=== PATIENT | female | born 1985 ===

== ENCOUNTER 2017-07-16 09:05 | Emergency (ER) | payer OTHER ==
[2017-07-16 10:13] VITALS: BP 106/85
--- NOTE | 2017-07-16 10:36 | ED ---
Throat Pain/Nasal Congestion - HPI Summary HPI Summary: 32 yr old female with the complaint of URI symptoms, cough, runny nose, sinus congestion, bilateral ear pressure. Denies SOB. Denies dizziness. She has had some myalgias. She has been ill for three days. - History of Current Complaint Chief Complaint: UCRespiratory Time Seen by Provider: 07/16/17 10:04 - Allergies/Home Medications Allergies/Adverse Reactions: Allergies Allergy/AdvReac Type Severity Reaction Status Date / Time No Known Allergies Allergy Verified 07/16/17 10:03 Home Medications: Home Medications D-Methorphan/PE/Acetaminophen [Cold Multi-Symptom [place]] 07/16/17 [History] Minocycline (NF) 50 mg 07/16/17 [History] PMH/Surg Hx/FS Hx/Imm Hx - Surgical History Surgery Procedure, Year, and Place: D&C [place] 2003. TUBAL LIGATION 2014 Infectious Disease History: No Infectious Disease History: Denies: Traveled Outside the [place] in Last 30 Days - Family History Known Family History: Positive: None - Social History Alcohol Use: None Substance Use Type: Reports: None Smoking Status (MU): Never Smoked Tobacco Review of Systems Positive: Chills Positive: Ear Ache, Nasal Discharge Positive: Cough Positive: Myalgia All Other Systems Reviewed And Are Negative: Yes Physical Exam Triage Information Reviewed: Yes Vital Signs On Initial Exam: Initial Vitals Temp Pulse Resp BP Pulse Ox 99.6 F 77 16 106/85 100 07/16/17 10:02 07/16/17 10:02 07/16/17 10:02 07/16/17 10:02 07/16/17 10:02 Vital Signs Reviewed: Yes Appearance: Positive: Well-Appearing, No Pain Distress Skin: Positive: Warm, Skin Color Reflects Adequate Perfusion Head/Face: Positive: Normal Head/Face Inspection Eyes: Positive: EOMI ENT: Positive: Normal ENT inspection, Pharynx normal, Nasal congestion, TMs normal, Sinus tenderness Neck: Positive: Nontender Respiratory/Lung Sounds: Positive: Clear to Auscultation, Breath Sounds Present Cardiovascular: Positive: RRR. Negative: Murmur Abdomen Description: Positive: Nontender Musculoskeletal: Positive: Strength/ROM Intact Neurological: Positive: Sensory/Motor Intact, Alert, Oriented to Person Place, Time, CN Intact II-III Psychiatric: Positive: Normal - Joel Coma Scale Best Eye Response: 4 - Spontaneous Best Motor Response: 6 - Obeys Commands Best Verbal Response: 5 - Oriented Coma Scale Total: 15 Diagnostics - Vital Signs Vital Signs Temp Pulse Resp BP Pulse Ox 07/16/17 10:02 99.6 F 77 16 106/85 100 - Laboratory Lab Statement: Any lab studies that have been ordered have been reviewed, and results considered in the medical decision making process. EENT Course/Dx - Course Course Of Treatment: 32 yr old with sinus pressure, Sinusitis. Rx augmentin - Diagnoses Provider Diagnoses: Sinusitis Discharge - Discharge Plan Condition: Good Disposition: HOME Prescriptions: Amoxicillin/Clavulanate TAB* [Augmentin TAB 875*] 875 mg PO BID #20 tab Patient Education Materials: Sinusitis (ED) Referrals: Cande Juarez [Primary Care Provider] -
== END 2017-07-16 11:19 | disposition home or self-care (01) ==
LOC: UCCORT 09:05
DX: J32.9 Chronic sinusitis, unspecified (principal)
CPT/HCPCS: 87502; 99202; G0463

== ENCOUNTER 2017-11-07 09:11 | Emergency (ER) | payer OTHER ==
--- NOTE | 2017-11-07 10:13 | UC ---
Abdominal Pain Female HPI - HPI Summary HPI Summary: Right lower abd pain for about 24 hours. She had fever and URI on Sunday. This is getting better. Last night she started having pain, cramping and low grade fevers of 99.9. She denies pain with intercourse or vaginal involvement. SHe denies urinary symptoms or hematuria. No flank pain. There is nausea this morning. No vomiting. THere have been loose stools as well. Prior d&C for misscarriage. - History of Current Complaint Chief Complaint: UCAbdominalPain Stated Complaint: LOWER ABDOMINAL PAIN Time Seen by Provider: 11/07/17 09:23 Hx Obtained From: Patient Hx Last Menstrual Period: 10/12/17 Onset/Duration: Gradual Onset, Lasting Hours Timing: Constant Severity Initially: Moderate Severity Currently: Moderate Pain Intensity: 4 Location: Discrete At: RLQ Character: Aching, Cramping Aggravating Factor(s): Other: - palpation. Alleviating Factor(s): Nothing Associated Signs and Symptoms: Positive: Fever, Nausea. Negative: Back Pain, Constipation, Blood in Stool, Urinary Symptoms, Decreased Appetite - she says she is hungry but has very bad nausea., Vaginal Bleeding, Vomiting, Diarrhea Allergies/Adverse Reactions: Allergies Allergy/AdvReac Type Severity Reaction Status Date / Time No Known Allergies Allergy Verified 11/07/17 10:47 Home Medications: Home Medications Acetaminophen [Tylophen] 1,000 mg PO Q6H 11/07/17 [History Confirmed 11/07/17] PMH/Surg Hx/FS Hx/Imm Hx Previously Healthy: Yes - Surgical History Surgical History: Yes Surgery Procedure, Year, and Place: D&C [place] 2003. TUBAL LIGATION 2014 - Family History Known Family History: Positive: None - Social History Occupation: Employed Full-time Alcohol Use: None Substance Use Type: None Smoking Status (MU): Never Smoked Tobacco Review of Systems Gastrointestinal: Abdominal Pain, Nausea Genitourinary: Negative All Other Systems Reviewed And Are Negative: Yes Physical Exam Triage Information Reviewed: Yes Appearance: Well-Appearing - No obvious discomfort with changes in position or walking into the room., No Pain Distress, Obese Vital Signs: Initial Vital Signs Temp 99.2 F 11/07/17 09:30 Pulse 60 11/07/17 09:30 Resp 17 11/07/17 09:30 BP 116/76 11/07/17 09:30 Pulse Ox 100 11/07/17 09:30 Vital Signs Reviewed: Yes Eyes: Positive: Conjunctiva Clear ENT: Positive: Normal ENT inspection, Nasal congestion, Uvula midline. Negative : Tonsillar swelling, Tonsillar exudate, Trismus, Muffled voice Neck: Positive: Supple, Nontender, No Lymphadenopathy Respiratory: Positive: Lungs clear, Normal breath sounds, No respiratory distress, No accessory muscle use. Negative: Respiratory distress, Decreased breath sounds, Accessory muscle use, Crackles, Rhonchi, Stridor Cardiovascular: Positive: No Murmur, Pulses Normal, Brisk Capillary Refill Abdominal Exam: Other - neg kimball's. Pos rovsig. Neg psoas. Abdomen Description: Positive: No Organomegaly, Soft, McBurney's Point Tenderness. Negative: CVA Tenderness (R), CVA Tenderness (L), Distended, Peritoneal Signs, Pulsatile Mass Musculoskeletal: Positive: Strength Intact, ROM Intact, No Edema Neurological: Positive: Alert, Muscle Tone Normal. Negative: Fatigued Psychological: Positive: Age Appropriate Behavior Skin: Negative: rashes Diagnostics - Radiology No standard instances Xray Interpretation: No Acute Changes Radiology Interpretation Completed By: Radiologist Abd Pain Female Course/Dx - Course Course Of Treatment: RLQ pain. She had a pelvic by roofing subcontractor one week ago and "swabs" were normal. She has low risk relationship with monogamous partner. No symptoms. There is suspicion of appendicitis based on location and tenderness. CT has been ordered. CT returns as neg for appendicitis or acute process on the right. Again, she has had pelvic coincidentelly this past week and she denies any vaginal symptoms. She is well. On re exam she remains the same and has no guarding or peritoneal signs or rebound. We told her in no uncertain terms that CT can be neg despite a true appendicitis in a low percentage of patients. She agrees to go to ED for any worsening and will f/u with pcp within 24 hours for repeat exam. - Differential Dx/Diagnosis Differential Diagnosis: ACS, Appendicitis, Bowel Obstruction, Constipation, Diverticulitis, Ectopic , Gall Bladder Disease, Irritable Bowel Syndrome, Ovarian Cyst, Pancreatitis, Pelvic Inflammatory Disease, Peptic Ulcer Disease, Pneumonia, Urinary Tract Infection Provider Diagnoses: abd pain right lower quadrant. Discharge - Sign-Out/Discharge Documenting (check all that apply): Discharge/Admit/Transfer - Discharge Plan Condition: Good Disposition: HOME Patient Education Materials: Acute Abdominal Pain (ED) Referrals: Cande Juarez [Primary Care Provider] - 1 Day Additional Instructions: Return here or to the ED as we discussed if any new symptoms arise or if current symptoms worsen. Otherwise f/u with pcp tomorrow for a recheck. - Billing Disposition and Condition Condition: GOOD Disposition: Home
[2017-11-07] MEDS ORDERED: Iohexol 300* (CONTRAST) 10 ML SDV IV ONE (10:47)
[2017-11-07 11:54] VITALS: BP 128/81
--- NOTE | 2017-11-07 12:40 | RAD ---
INDICATION: RIGHT lower quadrant tenderness. Intermittent RIGHT lower quadrant pain for 2 months began again this morning. Associated nausea. COMPARISON: No relevant prior exams available on the [facility] PACS for comparison. TECHNIQUE: Multidetector CT images were obtained from the lung bases to the ischial tuberosities with 99 mL Omnipaque 300 IV and oral contrast. Multiplanar reformation. REPORT: Unremarkable visualized inferior thorax. Mildly decreased density of the liver may reflect mild fat infiltration. Negative for focal liver lesions or biliary dilatation. No CT abnormality of the gallbladder, pancreas, spleen. Negative for CT abnormality of the upper GI, small bowel, or infra cecal appendix. Enteric contrast extends to the rectum. No suspicious abnormality of the colon. Physiologic small volume of free fluid at the adnexal regions. Negative for free air or hernias. Normal adrenal glands. Unremarkable kidneys with symmetric nephrograms and pyelograms. Unremarkable nondilated ureters. Largely decompressed urinary bladder limiting assessment without suspicious finding. Unremarkable anteverted uterus. Bilateral pelvic surgical clips likely reflecting previous tubal ligation. Unremarkable RIGHT adnexal region. Sharply circumscribed 1.9 cm water density lesion at the LEFT ovary consistent with a follicular cyst. Negative for lymphadenopathy. Normal diameter abdominal aorta and iliac arteries. Physiologic distention of the IVC. Negative for fracture or suspicious focal osseous lesions. Normal variant partial sacralization of L5. IMPRESSION: 1. Probable mild fatty infiltration of the liver. 2. Normal appendix documented. No acute pathologic process of the alimentary tract evident. 3. Suggestion of a 1.9 cm follicular cyst of the LEFT ovary. 4. Physiologic small volume of free pelvic fluid.
[2017-11-07 14:30] LABS: Hematocrit 40 % (35-47); Hemoglobin 13.5 g/dl (12.0-16.0); Mean Corpuscular HGB Conc 34 g/dl (31-36); Mean Corpuscular Hemoglobin 28 pg (27-31); Mean Corpuscular Volume 84 fL (80-97); Mean Platelet Volume 7.8 um3 (7.4-10.4); Platelet Count 267 10^3/ul (150-450); Red Cell Distribution Width 13 % (10.5-15); White Blood Count 7.9 10^3/ul (3.5-10.8)
[2017-11-07 14:54] LABS: EGFR Non-African American 91.5 (>60)
== END 2017-11-07 12:59 | disposition home or self-care (01) ==
LOC: UCCORT 09:11
DX: R10.31 Right lower quadrant pain (principal); R50.9 Fever, unspecified; R11.2 Nausea with vomiting, unspecified; R19.7 Diarrhea, unspecified; N93.9 Abnormal uterine and vaginal bleeding, unspecified
CPT/HCPCS: 36415; 74177; 80053; 81003; 84702; 85027; 99212; G0463; Q9967

== ENCOUNTER 2018-06-08 11:59 | Emergency (ER) | payer OTHER ==
[2018-06-08 13:46] VITALS: BP 113/73
--- NOTE | 2018-06-08 14:17 | UC ---
Respiratory Complaint HPI - HPI Summary HPI Summary: URI symptoms with cough and congestion. Fever as well. This started this morning. 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 She denies significant past medical history such as asthma. Nothing makes it better or worse. - History of Current Complaint Chief Complaint: UCRespiratory Stated Complaint: FEVER,COUGH,CHILLS,BODY ACHES Time Seen by Provider: 06/08/18 13:36 Hx Obtained From: Patient Hx Last Menstrual Period: 05/31/18 Onset/Duration: Gradual Onset, Lasting Hours Timing: Constant Severity Initially: Moderate Severity Currently: Moderate Pain Intensity: 3 Character: Cough: Nonproductive Aggravating Factors: Nothing Alleviating Factors: Nothing Associated Signs And Symptoms: Positive: Fever, URI, Nasal Congestion. Negative : Dyspnea, Calf Pain, Calf Swelling - Allergies/Home Medications Allergies/Adverse Reactions: Allergies Allergy/AdvReac Type Severity Reaction Status Date / Time No Known Allergies Allergy Verified 06/08/18 13:39 PMH/Surg Hx/FS Hx/Imm Hx Previously Healthy: No - Surgical History Surgical History: Yes Surgery Procedure, Year, and Place: D&C [place] 2003. TUBAL LIGATION 2014 - Family History Known Family History: Positive: None - Social History Occupation: Employed Full-time Alcohol Use: None Substance Use Type: None Smoking Status (MU): Never Smoked Tobacco Review of Systems All Other Systems Reviewed And Are Negative: Yes Constitutional: Positive: Fever ENT: Positive: Sinus Congestion Respiratory: Positive: Cough Physical Exam Triage Information Reviewed: Yes Appearance: Well-Appearing, No Pain Distress, Well-Nourished Vital Signs: Initial Vital Signs Temp 100 F 06/08/18 13:40 Pulse 84 06/08/18 13:40 Resp 18 06/08/18 13:40 BP 113/73 06/08/18 13:40 Pulse Ox 100 06/08/18 13:40 Vital Signs Reviewed: Yes Eyes: Positive: Conjunctiva Clear ENT: Positive: Normal ENT inspection, Pharynx normal, Nasal congestion, TMs normal, Uvula midline. Negative: Pharyngeal erythema, Nasal drainage, TM bulging, TM dull, TM red, Tonsillar swelling, Tonsillar exudate, Trismus, Muffled voice, Sinus tenderness Neck: Positive: Supple, Nontender, No Lymphadenopathy. Negative: Nuchal Rigidity Respiratory: Positive: Lungs clear, Normal breath sounds, No respiratory distress, No accessory muscle use. Negative: Respiratory distress, Decreased breath sounds, Accessory muscle use, Crackles, Rhonchi, Stridor, Wheezing Cardiovascular: Positive: No Murmur, Pulses Normal, Brisk Capillary Refill Abdomen Description: Positive: No Organomegaly, Soft. Negative: Distended, Guarding Musculoskeletal: Positive: Strength Intact, ROM Intact, No Edema Neurological: Positive: Alert, Muscle Tone Normal, Fatigued Psychological: Positive: Age Appropriate Behavior Skin: Negative: Rashes UC Diagnostic Evaluation - Laboratory O2 Sat by Pulse Oximetry: 100 Respiratory Course/Dx - Differential Dx/Diagnosis Provider Diagnosis: URI (upper respiratory infection) Discharge - Sign-Out/Discharge Documenting (check all that apply): Patient Departure All imaging exams completed and their final reports reviewed: No Studies - Discharge Plan Condition: Good Disposition: HOME Patient Education Materials: Upper Respiratory Infection (ED) Forms: *Work Release Referrals: Cande Juarez [Primary Care Provider] - If Needed - Billing Disposition and Condition Condition: GOOD Disposition: Home
== END 2018-06-08 14:21 | disposition home or self-care (01) ==
LOC: UCCORT 11:59
DX: J06.9 Acute upper respiratory infection, unspecified (principal); Z20.828 Contact with and (suspected) exposure to other viral communicable diseases
CPT/HCPCS: 99211; G0463